=== PATIENT | female | born 1985 | race American Indian/Alaskan Native ===

== ENCOUNTER 2017-03-11 06:35 | Day surgery (SDC) | payer MEDICAID ==
[2017-03-11] MEDS ORDERED: ANCEF/STERILE WATER 2 GM/20 ML IV NR ×2 (07:00→09:00)
--- NOTE | 2017-03-11 08:16 | Discharge Summary ---
Short Stay Discharge Plan Activity: no restrictions Weight Bearing Status: Full Weight Bearing Diet: regular Wound: remove dressing (72hrs) Follow up with: ALLAN PEÑALOZA JR, MD [Staff Physician] - 7 Days GRAYSON ZAIDI MD [Primary Care Provider] - 6 Weeks
--- NOTE | 2017-03-11 08:17 | Short Stay Summary ---
Short Stay Documentation Date of service: 03/11/17 - Allergies and Medications Current Medications: Allergies No Known Allergies Allergy (Verified 11/20/16 13:41) Home Medications Medication Instructions Recorded Confirmed Last Taken Type No Known Home Medications [No 03/07/17 03/07/17 Unknown History Reported Home Medications] - Brief post op/procedure progress note Date of procedure: 03/11/17 Pre-op diagnosis: B acquired Breast Deformity//Absence of Tyler.Nipples Post-op diagnosis: same Procedure: Tyler. Nipple Reconstruction Anesthesia: GETA Surgeon: ALLAN PEÑALOZA JR Estimated blood loss: minimal Condition: stable - Disposition Condition at discharge: Stable Disposition: DC-01 TO HOME OR SELFCARE Short Stay Discharge Plan Follow up with: GRAYSON ZAIDI MD [Primary Care Provider] - 6 Weeks ALLAN PEÑALOZA JR, MD [Staff Physician] - 7 Days
[2017-03-11] MEDS ORDERED: PEPCID ONE (08:25)
[2017-03-11] MEDS ORDERED: NACL 0.9% 1000 ML 1,000 ML ONE ×2 (08:25→11:30)
--- NOTE | 2017-03-11 09:16 | Anesthesia Consultation ---
Anesthesia Consult and Med Hx Date of service: 03/11/17 - Airway Anesthetic Teeth Evaluation: Good ROM Head & Neck: Adequate Mental/Hyoid Distance: Adequate Mallampati Class: Class II Intubation Access Assessment: Good - Pulmonary Exam CTA: Yes - Cardiac Exam Cardiac Exam: RRR - Pre-Operative Health Status ASA Pre-Surgery Classification: ASA2 Proposed Anesthetic Plan: General - Pulmonary Hx Smoking: No Hx Asthma: Yes ( CHILD ONLY) Hx Sleep Apnea: No (VICKIE PRE SCREEN LOW RISK) - Cardiovascular System Hx Hypertension: Yes (WITH PREG ONLY) - Central Nervous System Hx Seizures: No CVA: No - Endocrine Hx Renal Disease: No Hx Insulin Dependent Diabetes: No Hx Non-Insulin Dependent Diabetes: No Hx Thyroid Disease: No - Hematic Hx Anemia: Yes (WITH PREG ONLY) - Other Systems Hx Cancer: No Hx Obesity: Yes (BMI 39.6)
[2017-03-11] MEDS ORDERED: ZOFRAN IV PRN (09:17)
[2017-03-11] MEDS ORDERED: NORCO 5/325 PO PRN (09:17)
--- NOTE | 2017-03-11 09:17 | Anesthesia Day of Surgery ---
Anesthesia Day of Surgery - Day of Surgery Patient Examined: Yes Patient H&P Reviewed: Yes Patient is NPO: Yes
[2017-03-11] MEDS ORDERED: XYLOCAINE MPF 2% ONE (09:23)
[2017-03-11] MEDS ORDERED: DIPRIVAN 10 MG/ML IV ONE (09:23)
[2017-03-11 09:30] LABS: Hematocrit 32.4 % (30.3-42.9); Hemoglobin 10.2 gm/dl (10.1-14.3)
[2017-03-11] MEDS ORDERED: DECADRON ONE (09:58)
[2017-03-11] MEDS ORDERED: ZOFRAN ONE (09:59)
[2017-03-11] MEDS ORDERED: PEPCID PO NR (10:00)
[2017-03-11] MEDS ORDERED: VERSED IV NR (10:00)
[2017-03-11] MEDS: DILAUDID IV PRN ×4 (11:13→12:07)
[2017-03-11] MEDS ORDERED: PERCOCET 5/325 PO ONE (13:04)
--- NOTE | 2017-03-11 13:26 | Operative Report ---
SERVICE: Plastic surgery. PREOPERATIVE DIAGNOSES: 1. Bilateral acquired breast deformity. 2. Bilateral absence of nipples, status post bilateral breast reduction with nipple amputation. POSTOPERATIVE DIAGNOSES: 1. Bilateral acquired breast deformity. 2. Bilateral absence of nipples, status post bilateral breast reduction with nipple amputation. PROCEDURE: Bilateral nipple reconstruction. SURGEON: Rene Patrick MD DAY CARE ASSISTANT: Sunil Kennedy CSA. DESCRIPTION OF PROCEDURE: The patient was brought to the operating room and placed on the table in supine position. Following administration of general anesthesia, bilateral breasts were prepped with Betadine solution and draped in the usual sterile manner. A #11 blade scalpel used to incise preoperative markings for a flag shaped flap raised in standard manner, folded upon itself to form a cylinder, secured in place using interrupted and 2-0 Monocryl sutures. Donor site closed with interrupted and running subcuticular 2-0 Monocryl sutures. Skin was deepithelialized underneath the base of the reconstructed nipple prior to closure. Mastisol, Steri-Strips, and sterile dressings applied. The patient tolerated the procedure well and returned to recovery room in stable condition. JOB# [id number] FTW/NTS
[2017-03-11 18:56] VITALS: BP 95/51
== END 2017-03-11 14:05 | disposition home or self-care (01) ==
LOC: OR 06:35
PROVIDERS: ATTEND Plastic Surgery
DX: N64.89 Other specified disorders of breast (principal); E66.9 Obesity, unspecified; Z68.39 Body mass index [BMI] 39.0-39.9, adult; Z90.13 Acquired absence of bilateral breasts and nipples; Z98.890 Other specified postprocedural states; Z72.89 Other problems related to lifestyle; Z83.3 Family history of diabetes mellitus; Z82.49 Family history of ischemic heart disease and other diseases of the circulatory system
CPT/HCPCS: 19350; 36415; 81025; 85014; 85018; J0690; J1100; J1170; J2250; J2405; J2704; J7030

== ENCOUNTER 2017-10-16 18:26 | Emergency (ER) | payer MEDICAID | END 2017-10-16 19:08 | disposition left against medical advice (07) | LOC: ED 18:26 | DX: R10.9 Unspecified abdominal pain (principal); Z53.21 Procedure and treatment not carried out due to patient leaving prior to being seen by health care provider ==